=== PATIENT | female | born 2000 | race Caucasian/White ===

== ENCOUNTER 2020-08-30 16:22 | Emergency (ER) | payer BC, SELFPAY ==
[2020-08-30 16:31] VITALS: BP 113/80; PULSE 114; RESP 20; TEMP 37.1; O2SAT 97
--- NOTE | 2020-08-30 17:02 | ED.FEMALEGU ---
HPI - Female Genitourinary General Chief complaint: Urogenital-Female Stated complaint: POS UTI Time Seen by Provider: 08/30/20 16:53 Source: patient and RN notes reviewed Mode of arrival: ambulatory Limitations: no limitations History of Present Illness HPI Narrative: Patient presents today complaining of a 2-day history of dysuria and urinary frequency. Reports some lower abdominal pain last night but this has since resolved. Denies hematuria, back pain, fever. States she has never had a UTI in the past. Denies recent antibiotic use. Took a dose of Azo last night with short-term relief. MD elicited complaint: dysuria Related Data Home Medications Medication Instructions Recorded Confirmed etonogestrel-ethinyl estradiol vag ring VAGINAL 08/30/20 [NuvaRing] valacyclovir 08/30/20 Allergies Allergy/AdvReac Type Severity Reaction Status Date / Time No Known Allergies Allergy Verified 12/30/17 10:08 Review of Systems Review of Systems: Narrative: CONSTITUTIONAL: Denies body aches, fever, chills, or sweats. EYES: Denies visual changes, redness, or discharge. ENT: Denies rhinorrhea, congestion, sore throat, or otalgia. CARDIOVASCULAR: Denies chest pain, palpitations, or edema. RESPIRATORY: Denies cough or dyspnea. GASTROINTESTINAL: Denies abdominal pain, nausea, vomiting, or diarrhea. GENITOURINARY: Denies hematuria. + Dysuria, frequency SKIN: Denies rash, itching, or wounds. MUSCULOSKELETAL: Denies back pain, joint pain, or myalgia. NEUROLOGIC: Denies headache, numbness, tingling, or weakness. PSYCH: Denies depression or anxiety. PMFSH Comments At time of signature, I have reviewed and agree with nursing past medical, surgical, social and family history unless otherwise noted. Please see nursing chart for further information. There is no relevant family history pertinent to the presenting complaint Exam Narrative: Exam Narrative: GENERAL: Well-appearing, well-nourished, and in no acute distress. HEAD: Normocephalic, atraumatic. EYES: EOMI. No redness or drainage. Conjunctivae normal. ENT: Mucous membranes pink and moist. NECK: Normal AROM. Supple. No lymphadenopathy. CHEST: No respiratory distress. Clear to auscultation. HEART: Regular rate and rhythm. No murmur appreciated. Normal peripheral pulses. ABDOMEN: Soft, nondistended, normal active bowel sounds. + Tenderness in the suprapubic area.-CVAT MUSCULOSKELETAL: No bony tenderness. EXTREMITIES: Normal range of motion. No edema. SKIN: Warm, dry, no rash. Capillary refill normal. Normal skin turgor. NEURO: No focal deficits. Alert and oriented x3. Gait steady. PSYCH: Normal affect. No signs of depression or anxiety. Course Vital Signs Vital signs: Vital Signs Temperature 98.7 F 08/30/20 16:31 Pulse Rate 114 H 08/30/20 16:31 Respiratory Rate 20 08/30/20 16:31 Blood Pressure 113/80 08/30/20 16:31 Pulse Oximetry 97 08/30/20 16:31 Temperature 98.7 F 08/30/20 16:31 Pulse Rate 114 H 08/30/20 16:31 Respiratory Rate 20 08/30/20 16:31 Blood Pressure 113/80 08/30/20 16:31 Pulse Oximetry 97 08/30/20 16:31 Reviewed MDM - Female Genitourinary Differential Diagnosis Differential diagnosis: Likely urinary tract infection, vaginitis, cystitis and other (Interstitial cystitis, pyelonephritis) Lab Data Attestation: I reviewed the patient's lab results. Labs: Urine Glucose Trace Reference Range: Negative Urine Bilirubin Negative Reference Range: Negative Urine Ketone Negative Reference Range: Negative Urine Specific [place] 1.005 Reference Range:1.001-1.035 Urine Blood 1+
== END 2020-08-30 17:10 | disposition home or self-care (01) ==
PROVIDERS: Emergency Provider Nurse Practitioner; PCP Pediatrics
DX: N30.01 Acute cystitis with hematuria (principal)
CPT/HCPCS: 81003; 87077; 87086; 87088; 99213; G0463

== ENCOUNTER 2020-12-05 13:47 | Emergency (ER) | payer BC, SELFPAY ==
[2020-12-05 14:07] VITALS: BP 111/72; PULSE 110; RESP 16; TEMP 37.2; O2SAT 100
--- NOTE | 2020-12-05 14:29 | ED.FEMALEGU ---
HPI - Female Genitourinary General Chief complaint: Urogenital-Female Stated complaint: UTI SYMPTOMS Time Seen by Provider: 12/05/20 14:29 Source: patient and RN notes reviewed Mode of arrival: ambulatory Limitations: no limitations History of Present Illness HPI Narrative: 20-year-old female presents to the [facility] with complaints of urinary symptoms. States she has had burning, urgency, frequency and lower abdominal pressure since last night. Denies nausea vomiting or diarrhea. Denies fevers. Unsure of status. Last menstrual period was around 10 November. Denies any chances of STDs. Related Data Allergies Allergy/AdvReac Type Severity Reaction Status Date / Time No Known Allergies Allergy Verified 12/05/20 14:22 Review of Systems Review of Systems: All systems reviewed & are unremarkable except as noted in HPI and below Constitutional: Constitutional: Reports no additional constitutional complaints, Denies chills and Denies fatigue Eyes: Eyes: Reports no additional eye complaints ENT: Reports system reviewed and no additional complaints, except as documented and Denies sore throat Cardiovascular: Cardiovascular: Reports no additional cardiovascular complaints and Denies chest pain Respiratory: Respiratory: Reports no additional respiratory complaints, Denies cough, Denies dyspnea and Denies wheezing Gastrointestinal: Gastrointestinal: Reports as per HPI, Reports no additional gastrointestinal complaints, Denies abdominal pain, Denies diarrhea, Denies nausea and Denies vomiting Genitourinary: Genitourinary: Reports as per HPI, Reports nocturia, Denies genital lesions, Reports dysuria, Denies pelvic pain, Denies flank pain, Denies urinary incontinence and Denies vaginal discharge Musculoskeletal: Musculoskeletal: Reports no additional musculoskeletal complaints, Denies back pain, Denies myalgias, Denies arthralgias, Denies joint swelling and Denies muscle cramps Integumentary/Breasts: Skin/Breast: Reports system reviewed and no additional complaints, except as docu and Denies rash Neurologic: Reports system reviewed and no additional complaints, except as documented, Denies vertigo, Denies dizziness, Denies syncope, Denies headache(s), Denies focal weakness and Denies weakness Psychiatric: Psychiatric: Reports no additional psychiatric complaints Endocrine: Endocrine: Reports no additional endocrine complaints Allergic/Immunologic: Allergic/Immunologic: Reports no additional allergic/immunologic complaints PMFSH Comments At the time of my signature, I reviewed and agree with the nursing past medical, surgical, social, and family history. There is no relevant family history pertinent to the patient complaint. Exam Const: General: healthy appearing, no acute distress and alert Nutritional Appearance: well nourished Orientation/consciousness: patient oriented x3 Limitations: no limitations HENMT: Head: normal to inspection Ears: external ears normal Eyes: General: appearance normal, both eyes and all related structures Conjunctivae: conjunctivae normal Pupils: Equal, round and reactive pupils present Neck: Neck: normal visual inspection, no lymphadenopathy and no meningeal signs Chest: Chest palpation & inspection: normal inspection of the chest Resp: Effort & Inspection: normal respiratory effort and no use of accessory muscles Auscultation: clear to auscultation bilaterally, no crackles, no rales, no rhonchi and no wheezes Cardio: Rate: regular rate Rhythm: regular rhythm GI: GI Palp: Yes Soft to palpation and No Tenderness to palpation present (GI) : General: Yes no CVA tenderness Back/Spine/Pelvis: Back: no CVA tenderness Skin: General skin exam: normal color Rashes: no rashes Wounds: no wounds Neuro: General: patient oriented x3, moves all extremities, no meningeal signs and no focal motor deficits Speech: normal speech Gait exam (Neuro): Normal gait present Extrem: General: normal t
== END 2020-12-05 14:58 | disposition home or self-care (01) ==
PROVIDERS: Emergency Provider Nurse Practitioner; PCP Pediatrics
DX: N30.01 Acute cystitis with hematuria (principal)
CPT/HCPCS: 81003; 81025; 87086; 87088; 99213; G0463

== ENCOUNTER 2021-11-08 14:19 | Outpatient (CLI) | payer BC, SELFPAY ==
--- NOTE | ~2021-11-08 | MR_ITS ---
EXAMINATION: MR brain/brain stem wo/w con DATE: 11/08/2021 15:03 INDICATION: Hyperprolactinemia. TECHNIQUE: Magnetic resonance imaging (MRI) of the brain and brainstem was performed without and with 13 mL MultiHance intravenous contrast. COMPARISON: Head CT 07/20/2013 FINDINGS: The pituitary is normal in size with height of 9 mm. The infundibulum is at the midline. Th ere is no intracranial hemorrhage, acute infarction, or abnormal intracranial mass lesion. The ventri cles are normal in size. The paranasal sinuses are clear. The orbits are normal. The mastoid air cell s are normal. IMPRESSION: 1. Normal brain. Normal pituitary. Reviewed, dictated and finalized at location B.
[2021-11-08 14:35] LABS: Estimated Glomerular Filt Rate > 60
== END 2021-11-08 14:20 ==
PROVIDERS: PCP Physician Assistant; Visit Provider Physician Assistant
DX: R79.89 Other specified abnormal findings of blood chemistry (principal)
CPT/HCPCS: 70553; A9577

== ENCOUNTER 2022-08-22 11:41 | Outpatient (CLI) | payer BC, SELFPAY ==
--- NOTE | ~2022-08-22 | US_ITS ---
EXAMINATION: US OB <= 14 weeks fetus DATE: 08/22/2022 12:11 INDICATION: Gestational dating TECHNIQUE: Real-time transabdominal and transvaginal obstetric ultrasound. FINDINGS: No prior studies for comparison. The uterus measures 12.4 x 5.8 x 7.4 cm. There is an intrauterine gestational sac, with pole id entified. The crown rump length measures 1.4 cm, which correlates with a estimated gestational age o f 7 weeks 5 days. heart tones are identified measuring 157 BPM. The ovaries are not visualize d. IMPRESSION: 1. SL IUP with an EGA of 7 weeks, 5 days (EDC by current ultrasound of 04/05/2023). Reviewed, dictated and finalized at location B. [employer]ICER IMPRESSION: 1. SL IUP with an EGA of 7 weeks, 5 days (EDC by current ultrasound of 04/05/20 23).
== END 2022-08-22 11:42 ==
PROVIDERS: PCP Advanced Practice Midwife; Visit Provider Advanced Practice Midwife
DX: O36.80X0 Pregnancy with inconclusive fetal viability, not applicable or unspecified (principal); Z3A.01 Less than 8 weeks gestation of pregnancy
CPT/HCPCS: 76801

== ENCOUNTER 2022-11-11 12:50 | Outpatient (CLI) | payer BC, SELFPAY ==
--- NOTE | ~2022-11-11 | US_ITS ---
EXAMINATION: US OB /maternal detail DATE: 11/11/2022 13:18 INDICATION: anatomic survey. TECHNIQUE: Real-time ultrasound of the pelvis was performed. COMPARISON: Ultrasound 08/22/2022 FINDINGS: There is a single living fetus in vertex presentation. The placenta is anterior, 3.9 cm from the cer vix. The cervical length is 2.9 cm on transabdominal images, which is normal. heart rate is 151 beats per minute (bpm). The amniotic fluid volume is subjectively normal. The following biometric data were obtained: Biparietal diameter (BPD): 4.4 cm; head circumference (HC): 16.8 cm; abdominal circumference (AC): 14 .7 cm; femur length (FL): 3.0 cm. These measurements are concordant. Estimated weight is 305 g +/- 46 g, which correlates with the 68th percentile when 04/05/23 is used as estimated date of delivery. As single measurements, these parameters are each equal to the following estimated gestational ages: BPD: 19 weeks 3 days. HC: 19 weeks 3 days. AC: 20 weeks 0 days. FL: 19 weeks 2 days. estimated gestational age based solely on measurements from this exam is 19 weeks 4 days +/- 1 weeks 3 days. The cerebral ventricles, cerebellum, cisterna magna, nuchal fold, lip, and visualized portions of the spine are normal. The heart is normal. The diaphragm, stomach, kidneys, and bladder are normal. Ther e are two umbilical arteries to yield a 3-vessel cord. The cord insertion is normal. IMPRESSION: 1. Single living fetus in vertex presentation. 2. Estimated weight is 305 g +/- 46 g, which correlates with the 68th percentile when 04/05/23 is used as estimated date of delivery. This date was set by ultrasound on 08/22/2022. 3. Normal anatomic survey. Reviewed, dictated and finalized at location A. IMPRESSION: 1. Single living fetus in vertex presentation. 2. Estimated weight is 305 g +/- 46 g, which correlates with the 68th pe rcentile when 04/05/23 is used as estimated date of delivery. This date was set by ultrasound on 08/22/2022. 3. Normal anatomic survey.
== END 2022-11-11 12:51 ==
PROVIDERS: PCP Physician Assistant; Visit Provider Advanced Practice Midwife
DX: Z36.9 Encounter for antenatal screening, unspecified (principal); Z3A.19 19 weeks gestation of pregnancy
CPT/HCPCS: 76805

== ENCOUNTER 2022-12-27 10:01 | Outpatient (CLI) | payer BC, SELFPAY ==
[2022-12-27 10:20] VITALS: BP 123/74; PULSE 100
[2022-12-27 10:30] VITALS: BP 109/63; PULSE 92; BMI 36.6
[2022-12-27 10:45] VITALS: BP 114/71; PULSE 113
[2022-12-27] MEDS: LACTATED RINGERS 1,000 ML 999 ML IV CONT (11:04)
[2022-12-27 11:05] LABS: Basophils Percent Auto 0.3 % (0.2-1.2); Eosinophils Percent Auto 0.4 % (0-4.4); Hematocrit 34.1 % (37.0-47.0); Hemoglobin 11.3 g/dL (12.0-15.0); Immature Granulocyte Absolute 0.06 K/mm3 (0.00-0.031); Immature Granulocyte Percent A 0.5 % (0-0.5); Lymphocytes Absolute Auto 1.64 K/mm3 (0.9-3.2); Lymphocytes Percent Auto 14.5 % (18.3-44.2); Mean Corpuscular HGB Conc 33.1 g/dl (32-36); Mean Corpuscular Hemoglobin 31.3 pg (26-34); Mean Corpuscular Volume 94.5 fl (80-100); Mean Platelet Volume 9.2 fl (7.4-10.4); Monocytes Absolute Auto 0.5 K/mm3 (0.1-0.6); Monocytes Percent Auto 4.6 % (2.6-8.5); Neutrophils Percent Auto 79.7 % (45.5-73.1); Platelet Count Result 235 k/mm3 (150-375); Red Blood Count 3.61 M/mm3 (4.2-5.4); Red Cell Distribution Width 12.9 % (11.5-14.5); White Blood Count 11.3 K/mm3 (4.5-10.0)
[2022-12-27] MEDS: ONDANSETRON INJ 4 MG/2 ML VIAL IV PUSH (11:05)
[2022-12-27] MEDS: ACETAMINOPHEN/BUTALBITAL/CAFFEINE 325-50-40 MG TABLET (FIORICET) 1 TAB PO (11:51)
[2022-12-27 12:25] LABS: Alanine Aminotransferase 21 U/L (6-35); Albumin Level 3.7 g/dL (3.5-5.1); Alkaline Phosphatase 86 U/L (38-126); Anion Gap 5 mmol/L (8-16); Aspartate Amino Transferase 20 U/L (14-36); Bilirubin,Total 0.3 mg/dL (0.2-1.3); Blood Urea Nitrogen 8 mg/dL (7-17); Calcium 8.9 mg/dL (8.4-10.2); Carbon Dioxide 24 mmol/L (22-30); Chloride 105 mmol/L (98-107); Estimated Glomerular Filt Rate > 60; Glucose 85 mg/dL (65-110); Sodium 134 mmol/L (137-145); Uric Acid 2.9 mg/dL (2.5-7.5)
--- NOTE | 2022-12-27 12:30 | PC.NURSE ---
Dr. Taveras on unit. Lab results reviewed. Pt states that she is feeling better and would like to go home. Tolerating PO fluids. May D/C home.
--- NOTE | 2022-12-27 12:30 | PM.OBTRLD ---
OB - Triage/Final Diagnosis Visit Information Date of evaluation: 12/27/22 Reason for evaluation: other (migraine) Comments/Additional reasons for admission: I have assessed the risk for this patient, Vy Montgomery, and determined that she would benefit from observation care. Evaluation Laboratory results: Laboratory Tests 12/27/22 12/27/22 10:43 10:44 WBC 11.3 H RBC 3.61 L Hgb 11.3 L Hct 34.1 L MCV 94.5 MCH 31.3 MCHC 33.1 RDW 12.9 Plt Count 235 MPV 9.2 Immature Gran % (Auto) 0.5 Neut % (Auto) 79.7 H Lymph % (Auto) 14.5 L [place] % (Auto) 4.6 Eos % (Auto) 0.4 Baso % (Auto) 0.3 Lymph # (Auto) 1.64 [place] # (Auto) 0.5 Eos # (Auto) 0.0 Baso # (Auto) 0.0 Abs Immat Gran (auto) 0.06 H Absolute Neuts (auto) 9.0 H Absolute Nucleated RBC 0.0 Nucleated RBC % 0.0 Sodium 134 L Potassium 4.0 Chloride 105 Carbon Dioxide 24 Anion Gap 5 L BUN 8 Creatinine 0.50 L Estim Creat Clear Calc Not Reportable Estimated GFR > 60 Glucose 85 Uric Acid 2.9 Calcium 8.9 Total Bilirubin 0.3 AST 20 ALT 21 Alkaline Phosphatase 86 Total Protein 6.0 L Albumin 3.7 Vital signs: Vital Signs - 24 hr 12/27/22 10:20 12/27/22 10:30 12/27/22 10:45 Pulse Rate 100 92 113 H Blood Pressure 123/74 109/63 114/71
== END 2022-12-27 12:45 | disposition home or self-care (01) ==
LOC: ANHOBOP 10:06 → ANHOBPP 10:08
PROVIDERS: Student in an Organized Health Care Education/Training Program; PCP Physician Assistant; Visit Provider Obstetrics & Gynecology Gynecology
DX: R51.9 Headache, unspecified (principal); R42 Dizziness and giddiness
CPT/HCPCS: 36415; 59025; 80053; 84550; 85025; 96374; 99199; A9270; J2405; J7120

== ENCOUNTER 2023-02-17 12:57 | Outpatient (CLI) | payer BC, SELFPAY ==
--- NOTE | ~2023-02-17 | US_ITS ---
EXAMINATION: US OB follow up DATE: 02/17/2023 13:19 INDICATION: Size greater than dates during third trimester TECHNIQUE: Real-time ultrasound of the pelvis was performed. The interpreting radiologist was not pre sent for the study. COMPARISON: None. FINDINGS: There is a single living fetus in vertex presentation. The placenta is anterior and 10.7 cm from the internal cervical os. The measured cervical length is 4.4 cm. cardiac activity and fe beronica movement are noted. heart rate is 137 beats per minute (bpm). The amniotic fluid index is 1 5.6 cm which is normal (normal range: 8.3 cm to 24.5 cm). The following biometric data were obtained: Biparietal diameter (BPD): 8.3 cm; head circumference (HC): 29.6 cm; abdominal circumference (AC): 30 .1 cm; femur length (FL): 6.6 cm. These measurements are concordant. Estimated weight is 2295 g +/- 344 g, which correlates with the 60th percentile when 04/05/2023 is used as estimated date of delivery. As single measurements, these parameters are each equal to the following estimated gestational ages w ith ranges of +/- 2 standard deviations: BPD: 33 weeks 2 days ( 30 weeks 2 days - 36 weeks 3 days). HC: 32 weeks 5 days ( 29 weeks 5 days - 35 weeks 5 days). AC: 34 weeks 1 days ( 31 weeks 1 days - 37 weeks 0 days). FL: 34 weeks 1 days ( 31 weeks 1 days - 37 weeks 0 days). estimated gestational age based solely on measurements from this exam is 33 weeks 4 days +/- 2 weeks 2 days. IMPRESSION: 1. Single living fetus in vertex presentation. 2. Normal amniotic fluid index. 3. Estimated weight is 2295 g +/- 344 g, which correlates with the 60th percentile when 023 is used as estimated date of delivery. Reviewed, dictated and finalized at location A. IMPRESSION: 1. Single living fetus in vertex presentation. 2. Normal amniotic fluid index. 3. Estimated weight is 2295 g +/- 344 g, which correlates with the 60th p ercentile when 04/05/2023 is used as estimated date of delivery.
== END 2023-02-17 12:58 ==
PROVIDERS: PCP Advanced Practice Midwife; Visit Provider Advanced Practice Midwife
DX: O36.63X0 Maternal care for excessive fetal growth, third trimester, not applicable or unspecified (principal); Z3A.00 Weeks of gestation of pregnancy not specified
CPT/HCPCS: 76816

== ENCOUNTER 2023-04-05 06:14 | Inpatient (IN) | payer BC, SELFPAY ==
[2023-04-05] VITALS (54 sets, daily range): BP systolic 75–167; BP diastolic 30–118; PULSE 90–145; RESP 18; TEMP 36.5–37.7; O2SAT 98; BMI 40.3
--- NOTE | 2023-04-05 06:14 | LDADM ---
This patient, Vy Viera, was admitted to Labor/Delivery/Recovery 102 on 04/05/23 at 06:14. Plans for labor, pain management and were discussed with patient. Patient/family oriented to hospital policies and general routines including ID bracelet, bed and alarms, visiting hours, pain management, procedures, bathroom and other care routines, personal items, smoking policy, room service/diet and guest tray routines, security routines, and visiting hours. Patient/Family are encouraged to report perceived risks to care and to ask questions if they do not understand what they are told or what they should do. See OBIX for further documentation.
[2023-04-05 07:23] LABS: Basophils Percent Auto 0.3 % (0.2-1.2); Eosinophils Absolute Auto 0.1 K/mm3 (0-0.3); Eosinophils Percent Auto 0.6 % (0-4.4); Hemoglobin 10.5 g/dL (12.0-15.0); Immature Granulocyte Absolute 0.04 K/mm3 (0.00-0.031); Immature Granulocyte Percent A 0.5 % (0-0.5); Lymphocytes Absolute Auto 1.27 K/mm3 (0.9-3.2); Lymphocytes Percent Auto 14.3 % (18.3-44.2); Mean Corpuscular HGB Conc 31.8 g/dl (32-36); Mean Corpuscular Hemoglobin 28.8 pg (26-34); Mean Corpuscular Volume 90.7 fl (80-100); Mean Platelet Volume 10.2 fl (7.4-10.4); Monocytes Absolute Auto 0.5 K/mm3 (0.1-0.6); Monocytes Percent Auto 5.3 % (2.6-8.5); Platelet Count Result 210 k/mm3 (150-375); Red Blood Count 3.64 M/mm3 (4.2-5.4); Red Cell Distribution Width 13.8 % (11.5-14.5); White Blood Count 8.9 K/mm3 (4.5-10.0)
[2023-04-05] MEDS: OXYTOCIN 30 UNITS/NS 500 ML 30 UNITS/500 ML BAG IV CONT (07:35)
[2023-04-05] MEDS: LACTATED RINGERS 1,000 ML 125 ML IV CONT (07:35)
--- NOTE | 2023-04-05 08:14 | WPDOBADMIT ---
Obstetrics - Admit Note Admission Note: record reviewed. No pertinent additions to the history and/or any subsequent changes in the physical findings that are not consistent with the expected course of the were found. Additions to the history and/or subsequent changes in the physical findings follow. None.
--- NOTE | 2023-04-05 08:14 | PM.OBPNLAB ---
Pain Control Date/time seen: 04/05/23 08:10 Pain control: tolerating well Comments: denies feeling any regular uterine contractions Pelvic Exam Dilation (cm): 4 (4.5) Effacement (%): 80 station: -3 Amniotic membrane status: Intact Comments: head well applied to cervix Contractions Monitor mode: External Contraction frequency: 6 Contraction pattern: Irregular Contraction intensity: Mild Status status: Category l Assessment and Plan Assessment: induction ongoing Comments: CNM to bedside. Discussed plan of care an option for amniotomy. Discussed risks, benefits, and expectations of breaking water. Patient is agreeable. Amniotomy performed and there was a small return of clear amniotic fluid. Patient tolerated procedure well. Continue to titrate pitocin as needed to achieve adequate contraction pattern. If no change with next SVE, would recommend IUPC. Anticipate vaginal . Dr. Mays updated.
[2023-04-05 10:43] LABS: Rapid Plasma Reagin Non-Reactive (NonReactive)
--- NOTE | 2023-04-05 12:12 | P.PNOB_ITS ---
Pain Control Date/time seen: 04/05/23 12:08 Pain control: tolerating well Comments: Feeling regular painful ctx in her lower abdomen. Family present and supportive. Pelvic Exam Dilation (cm): 6 (4.5) Effacement (%): 90 station: -1 Amniotic membrane status: Ruptured Contractions Monitor mode: External Contraction pattern: Regular Contraction intensity: Moderate Status status: Category l Comments: Baseline 125, accelerations. present. Assessment and Plan Pitocin rate (mU/min): 3 Plan: continuous present management Comments: Called by RN for IUPC placement due to difficulty tracing contractions and wa nting to ensure adequate uterine rest. Discussed IUPC placement with pt. She was aggreable. IUPC placed easily and returned with clear amniotic fluid. If MVUs well over 220 mmHg, plan to discontinue pitocin. If ctx become inadequate after that time, will restart pitocin. Recommend frequent maternal position changes to facilitate optimal positioning. Anticipate vaginal . Dr. Tabatha khanna.
[2023-04-05] MEDS: fentaNYL CITRATE INJ (*CRX) 100 MCG/2 ML VIAL 50 MCG IV PUSH ×2 (12:24→17:19)
[2023-04-05] MEDS: fentaNYL CITRATE INJ (*CRX) 100 MCG/2 ML VIAL IV PUSH (13:31)
--- NOTE | 2023-04-05 15:25 | PM.OBPRVD ---
OB - Delivery Note Procedure Induction method: AROM and Per Pitocin Protocol Delivery augmentation: Rupture of Membranes Delivery monitor: External FHT and Internal Uterine [place] Baby Date of : 04/05/23 presentation: vertex
--- NOTE | 2023-04-05 15:25 | PM.OBDSVD ---
DS: Admitting Diagnosis Discharge Date 04/07/[address] Mays Admitting Diagnosis 22 y.o. 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 - Herpesviral infection, unspecified Status: Acute OB - DS: Summary Hospital Course Hospital Course: Uncomplicated OB Procedures : Ultrasound OB Procedures Intrapartum: Spontaneous Vag Delivery OB Procedures: : Rubella lg Peripartum Data Infant Delivery Method: Natural Vaginal Laceration Description: Vaginal - 2nd Degree and Labial Episiotomy description: None complications: none Status at Discharge Functional status at discharge: independent ambulation Overall status at discharge: patient is progressing back to baseline Time Spent with Patient Time attestation: Total time spent providing and/or coordinating discharge services: DS: Data Data Completed and Pending Labs on day of discharge: Labs from last 24 hours 04/05/23 07:09 WBC 8.9 RBC 3.64 L Hgb 10.5 L Hct 33.0 L MCV 90.7 MCH 28.8 MCHC 31.8 L RDW 13.8 Plt Count 210 MPV 10.2 Immature Gran % (Auto) 0.5 Neut % (Auto) 79.0 H Lymph % (Auto) 14.3 L [place] % (Auto) 5.3 Eos % (Auto) 0.6 Baso % (Auto) 0.3 Lymph # (Auto) 1.27 [place] # (Auto) 0.5 Eos # (Auto) 0.1 Baso # (Auto) 0.0 Abs Immat Gran (auto) 0.04 H Absolute Neuts (auto) 7.0 H Absolute Nucleated RBC 0.0 Nucleated RBC % 0.0 RPR Non-reactive Blood Type O Positive Antibody Screen Negative Discharge Plan Discharge Attending physician on discharge: Emilia Mays Consulting providers: Aparna Al Discharging Clinician: Emilia Mays Patient Disposition: Home, Self-Care Activity: may shower Diet: as tolerated and regular Wound Care Instructions: follow printed instructions Discharge Instructions: Education: Mom and Baby Guide Given to: Mother Follow-Up: Call your delivering provider's office for an appointment to be seen in: 6 Weeks Mom and baby should come to the [facility] for the follow-up appointment. Appointment Date/Time: April 10, 2023 at 11:00 am What to expect at your follow-up visit: Blood Pressure Check Physical Assessment Call [phone] if you are unable to keep your appointment time. BREAST CARE: * Wear a snug supportive bra. * For engorgement discomfort: Breast Feeding: * Apply warm moist washcloths * Express milk as needed to relieve engorgement * Wear loose clothing Bottle Feeding: * May apply ice packs * For sore nipples: * Identify correct latch-on * Apply warm moist washcloths before and after nursing * Air dry nipples after nursing * May apply Lansinoh cream to nipples EPISIOTOMY/PERINEAL CARE: * Until bleeding stops, use your rah bottle after urinating * Change your pad frequently throughout the day * You may take sitz baths several times a day (fill your bathtub with warm water and soak for 20 minutes.) Do NOT bathe in the water * No tub baths until seen by your physician - You may shower ACTIVITY: * Rest as much as possible. * Do not exercise or lift anything heavier than your baby (such as laundry or other children.) * Avoid stairs or driving as much as possible. * Do not put anything into the vagina. No douching, tampons, or sexual activity until seen by physician. NOTIFY PHYSICIAN
[2023-04-05] MEDS: METHYLERGONOVINE MALEATE 0.2 MG/ML VIAL IM (16:28)
[2023-04-05] MEDS: OXYTOCIN 30 UNITS/NS 500 ML 30 UNITS/500 ML BAG 125 UNITS IV CONT (16:48)
--- NOTE | 2023-04-05 17:13 | PC.NURSE ---
Aparna YOST ordered 50mcg of Fentanyl for repair
--- NOTE | 2023-04-05 17:59 | PM.OBPRVD ---
OB - Delivery Note Procedure Delivery date: 04/05/23 Procedure: Induction method: AROM and Per Pitocin Protocol Delivery augmentation: Rupture of Membranes Delivery monitor: External FHT and Internal Uterine Route of delivery: Episiotomy description: None Laceration Description: Vaginal, Labial and Other (4 seperate lacerations. 1- 2nd degree right vaginal to r labial, 2- 1st degree vaginal at 6 o'clock, 3- 2nd degree left vaginal, 4- 1st degree left labial) Delivery repair: vicryl Specimen: No Quantitative Blood Loss (ml): 800 Anesthesia type: Local Disposition: Floor Narrative: Patient presented at induction of labor at term. Pitocin was started and amniotomy was performed. She made steady progress to complete dilation and began pushing with contractions. She pushed for a short time and quickly brought the head to complete crown. She delivered the head in the [place] position after which fair restitution was observed. No nuchal cord was identified. The anterior and posterior shoulders delivered easily, followed by the remainder of the . The infant was placed on maternal abdomen and cared transferred to the nursery staff. After 1 minute of life, the cord was doubly clamped and cut. Cord blood, cord gases, and cord segment were obtained. The placenta delivered spontaneously. The vagina and perineum were inspected and while the Perineum was found to be intact, there were 4 separate vaginal lacerations. Attention was given to the 2nd degree right vaginal and labial laceration as bleeding was brisk. Two [id number] sutures were placed. Remainder of the laceration was repaired in usual fashion. The 3 remaining lacerations were repaired under local analgesia. a red rubber catheter was inserted in a sterile fashion and 400 mL of urine was drained. Uterine tone was excellent. Two small clots were removed from the lower uterine segment/ cervical area. There was excellent hemostasis and all delivery counts correct. [place] Baby Date of : 04/05/23 Time of : 16:10 Weeks of gestation at delivery: 40 Infant gender: Female Weight (pounds): 8 Weight (ounces): 12 presentation: vertex position: Left Occiput Anterior Placenta delivery description: Spontaneous and Normal Configuration Cord Vessel Description: 3 Vessels, Clamped/Cut and Delayed Cord Clamping score one minute: 8 score five minutes: 9
[2023-04-05] MEDS: LACTATED RINGERS 1,000 ML 999 ML IV CONT (19:00)
[2023-04-06] VITALS (14 sets, daily range): BP systolic 110–128; BP diastolic 58–80; PULSE 97–118; RESP 16–18; TEMP 36.2–36.9; O2SAT 97–100
[2023-04-06 05:01] LABS: Hemoglobin 7.5 g/dL (12.0-15.0)
--- NOTE | 2023-04-06 07:23 | P.PNOB_ITS ---
OB - PN: Subj Subjective Date/time seen: 04/06/23 07:23 Interval history: Dizzy any time stands. No other complaints. baby status: doing well OB - PN: Obj Data Labs 04/06/23 04:41 Labs: Laboratory Results - last 24 hr 04/05/23 04/06/23 07:09 04:41 WBC 8.9 RBC 3.64 L Hgb 10.5 L 7.5 L D Hct 33.0 L 24.0 L MCV 90.7 MCH 28.8 MCHC 31.8 L RDW 13.8 Plt Count 210 MPV 10.2 Immature Gran % (Auto) 0.5 Neut % (Auto) 79.0 H Lymph % (Auto) 14.3 L [place] % (Auto) 5.3 Eos % (Auto) 0.6 Baso % (Auto) 0.3 Lymph # (Auto) 1.27 [place] # (Auto) 0.5 Eos # (Auto) 0.1 Baso # (Auto) 0.0 Abs Immat Gran (auto) 0.04 H Absolute Neuts (auto) 7.0 H Absolute Nucleated RBC 0.0 Nucleated RBC % 0.0 RPR Non-reactive Blood Type O Positive Antibody Screen Negative OB - PN A/P Assessment and Plan (1) Anemia: Code(s): D64.9 - Anemia, unspecified Status: Acute Assessment and Plan: Predelivery 10.5 and now 7.5 Hemoglobin. Patient with elevated pulse since delivery up to 132. Symptomatic when standing. Offered and explained blood transfusion and patient agrees. Will give 2 units PRBC. Plan day: 1 Plan: routine care Time Spent With Patient Time: Total time spent is greater than 50% in coordination of care (as documented) at patient's floor/unit and/or counseling patient: Exam : Bimanual exam- vagina & uterus: other (Uterus firm, nt @U)
[2023-04-06] MEDS: POLYSACCHARIDE IRON COMPLEX 150 MG CAPSULE PO ×2 (08:42→17:06)
[2023-04-06] MEDS: DOCUSATE SODIUM 100 MG CAPSULE PO ×2 (08:43→17:06)
[2023-04-06] MEDS: SODIUM CHLORIDE 0.9% IV 250 ML 30 ML IV CONT (09:30)
[2023-04-07 05:25] LABS: Hematocrit 26.5 % (37.0-47.0); Hemoglobin 8.4 g/dL (12.0-15.0); Mean Corpuscular HGB Conc 31.7 g/dl (32-36); Mean Corpuscular Volume 91.4 fl (80-100); Mean Platelet Volume 10.7 fl (7.4-10.4); Platelet Count Result 196 k/mm3 (150-375); Red Cell Distribution Width 14.8 % (11.5-14.5)
[2023-04-07 07:35] VITALS: BP 116/72; PULSE 103; RESP 16; TEMP 36.8; O2SAT 99
--- NOTE | 2023-04-07 08:51 | P.PNOB_ITS ---
OB - PN: Subj Subjective Date/time seen: 04/07/23 08:51 Interval history: dizziness resolved. Patient comments: no complaints [place] baby status: doing well OB - PN: Obj Data Labs 04/07/23 04:05 Labs: Laboratory Results - last 24 hr 04/05/23 04/07/23 07:09 04:05 WBC 12.0 H RBC 2.90 L Hgb 8.4 L Hct 26.5 L MCV 91.4 MCH 29.0 MCHC 31.7 L RDW 14.8 H Plt Count 196 MPV 10.7 H Blood Type O Positive Antibody Screen Negative Crossmatch See Detail OB - PN A/P Plan day: 2 Plan: routine care, discharge home, follow up 6 weeks and other (NFP for bc) Time Spent With Patient Time: Total time spent is greater than 50% in coordination of care (as documented) at patient's floor/unit and/or counseling patient: Exam : Bimanual exam- vagina & uterus: other (Uterus firm, nt @U)
[2023-04-07] MEDS: DOCUSATE SODIUM 100 MG CAPSULE PO (09:31)
[2023-04-07] MEDS: POLYSACCHARIDE IRON COMPLEX 150 MG CAPSULE PO (09:31)
[2023-04-07] MEDS: MEASLES,MUMPS,RUBELLA VACCINE 0.5 ML VIAL SUB-Q (09:32)
[2023-04-10 11:13] VITALS: BP 116/77; PULSE 98; RESP 18; TEMP 36.9; O2SAT 100
== END 2023-04-07 11:20 | disposition home or self-care (01) | DRG 807 ==
LOC: ANHLDR 15:27 → ANHOB2 21:28
PROVIDERS: Advanced Practice Midwife; Admitting Provider Obstetrics & Gynecology Gynecology; PCP Physician Assistant; Visit Provider Obstetrics & Gynecology Gynecology
DX: O99.02 Anemia complicating childbirth (principal); Z37.0 Single live birth; Z3A.40 40 weeks gestation of pregnancy; D64.9 Anemia, unspecified; O70.1 Second degree perineal laceration during delivery
CPT/HCPCS: 36415; 36430; 85014; 85018; 85025; 85027; 86592; 86850; 86900; 86901; 86923; 90710; A9270; J2210; J2590; J3010; J7050; J7120; P9016

== ENCOUNTER 2023-07-13 13:29 | Outpatient (CLI) | payer MEDICAID, SELFPAY ==
--- NOTE | ~2023-07-13 | US_ITS ---
EXAMINATION: US OB <= 14 weeks fetus DATE: 07/13/2023 13:58 INDICATION: Spotting. First trimester. TECHNIQUE: Real-time transabdominal pelvic ultrasound was performed. COMPARISON: Ultrasound 02/17/2023 FINDINGS: The uterus measures 10.1 x 4.8 x 6.5 cm. The endometrial complex measures 15 mm in thickness. There i s no visible intrauterine gestational sac. The right ovary measures 4.5 x 2.7 x 4.6 cm. The left ovar y measures 3.5 x 1.9 x 3.3 cm. There is no free fluid in the pelvis. IMPRESSION: 1. No visible intrauterine gestational sac, which may be normal in early . Spontaneous abor tion and ectopic are not excluded. Serial beta-hCGs are recommended. Reviewed, dictated and finalized at location E. GER SUPPLIER IMPRESSION: 1. No visible intrauterine gestational sac, which may be normal in early pregn kaiser. Spontaneous and ectopic are not excluded. Serial beta- hCGs are recommended.
== END 2023-07-13 13:30 ==
PROVIDERS: PCP Obstetrics & Gynecology Gynecology; Visit Provider Obstetrics & Gynecology Gynecology
DX: O26.851 Spotting complicating pregnancy, first trimester (principal); Z3A.00 Weeks of gestation of pregnancy not specified
CPT/HCPCS: 76801

== ENCOUNTER 2023-11-28 15:38 | Outpatient (CLI) | payer OTHER, SELFPAY ==
--- NOTE | ~2023-11-28 | US_ITS ---
EXAMINATION: US OB <= 14 weeks fetus DATE: 11/28/2023 16:22 INDICATION: Uncertain gestational dates TECHNIQUE: Real-time transabdominal and transvaginal obstetric ultrasound. FINDINGS: The uterus measures 14.9 x 6.8 x 8.9 cm. There is an intrauterine gestational sac, with pole id entified. The crown rump length measures 1.62 cm, which correlates with a estimated gestational age of 8 weeks 0 days. heart tones are identified measuring 157 BPM. The ovaries are within jeffery l limits. No significant ovarian or adnexal mass. IMPRESSION: 1. SL IUP with an EGA of 8 weeks, 0 days (EDC by current ultrasound of 07/09/2024). Reviewed, dictated and finalized at location B. IMPRESSION: 1. SL IUP with an EGA of 8 weeks, 0 days (EDC by current ultrasound of ).
== END 2023-11-28 15:39 | disposition home or self-care (01) ==
PROVIDERS: PCP Physician Assistant; Visit Provider Advanced Practice Midwife
DX: Z36.87 Encounter for antenatal screening for uncertain dates (principal)
CPT/HCPCS: 76801

== ENCOUNTER 2024-02-22 13:30 | Outpatient (CLI) | payer OTHER, SELFPAY ==
--- NOTE | ~2024-02-22 | US_ITS ---
EXAMINATION: US OB /maternal detail DATE: 02/22/2024 14:52 INDICATION: Encounter for screening. TECHNIQUE: Real-time ultrasound of the pelvis was performed. COMPARISON: Ultrasound 11/28/2023 FINDINGS: There is a single living fetus in breech presentation. The placenta is posterior. heart rate i s 155 beats per minute (bpm). The cervical length is normal on transabdominal images. The amniotic fl uid index is 11.3 cm, which is normal. The following biometric data were obtained: Biparietal diameter (BPD): 4.7 cm; head circumference (HC): 17.5 cm; abdominal circumference (AC): 16 .6 cm; femur length (FL): 3.3 cm. These measurements are discordant with low HC/AC. Estimated weight is 380 g +/- 57 g, which correlates with the 76th percentile when 07/09/24 is u sed as estimated date of delivery. As single measurements, these parameters are each equal to the following estimated gestational ages: BPD: 20 weeks 1 days. HC: 20 weeks 0 days. AC: 21 weeks 4 days. FL: 20 weeks 1 days. estimated gestational age based solely on measurements from this exam is 20 weeks 3 days +/- 1 weeks 3 days. The cerebral ventricles, cerebellum, cisterna magna, nuchal fold, and spine are normal. The heart is normal. The diaphragm, stomach, kidneys, and bladder are normal. There are two umbilical arteries to yield a 3-vessel cord. The cord insertion is normal. IMPRESSION: 1. Single living fetus in breech presentation. 2. Estimated weight is 380 g +/- 57 g, which correlates with the 76th percentile when 07/09/24 is used as estimated date of delivery. This date was set by ultrasound on 11/28/2023. 3. Discordant biometrics with low HC/AC. 4. Normal anatomic survey. Reviewed, dictated and finalized at location A. IMPRESSION: 1. Single living fetus in breech presentation. 2. Estimated weight is 380 g +/- 57 g, which correlates with the 76th pe rcentile when 07/09/24 is used as estimated date of delivery. This date was set by ultrasound on 11/28/2023. 3. Discordant biometrics with low HC/AC. 4. Normal anatomic survey.
== END 2024-02-22 13:31 | disposition home or self-care (01) ==
PROVIDERS: PCP Physician Assistant; Visit Provider Obstetrics & Gynecology
DX: Z36.9 Encounter for antenatal screening, unspecified (principal)
CPT/HCPCS: 76805

== ENCOUNTER 2024-04-23 10:12 | Outpatient (CLI) | payer OTHER, SELFPAY ==
--- NOTE | ~2024-04-23 | US_ITS ---
EXAMINATION: US OB follow up DATE: 04/23/2024 10:59 INDICATION: Obesity complicating TECHNIQUE: Real-time ultrasound of the pelvis was performed. The interpreting radiologist was not pre sent for the study. COMPARISON: None. FINDINGS: There is a single living fetus in vertex presentation. The placenta is posterior. heart rate i s 151 beats per minute (bpm). The amniotic fluid index is 12.2 cm, which is normal (5th%-95%: 9.2-23 .1 cm at 29 weeks estimated gestational age). Normal cervical length of 4.3 cm. The following biometric data were obtained: BPD: 7.6 cm -> 30 weeks 4 days Head circumference: 27.4 cm -> 29 weeks 6 days Abdominal circumference: 26.3 cm -> 30 weeks 3 days Femur length: 5.5 cm -> 28 weeks 6 days These measurements are concordant. Head circumference to abdominal circumference ratio: 1.04 (normal range 0.97-1.19). Estimated weight: 1472 g (+/-) 221 g or 3 lbs. 4 oz. (+/-) 8 oz. IMPRESSION: 1. Single living fetus in vertex presentation with heart rate of 151 bpm. 2. Normal amniotic fluid index of 12.2 cm. 3. Estimated weight is 70th percentile by Hadlock criteria when 07/09/2024 is used as the estima clemencia date of delivery (OLENA). Please correlate with clinical information or earlier ultrasounds for mos t accurate OLENA. Reviewed, dictated and finalized at location A. IMPRESSION: 1. Single living fetus in vertex presentation with heart rate of 151 bpm. 2. Normal amniotic fluid index of 12.2 cm. 3. Estimated weight is 70th percentile by Hadlock criteria when 07/09/2024 is used as the estimated date of delivery (OLENA). Please correlate with clinica l information or earlier ultrasounds for most accurate OLENA.
== END 2024-04-23 10:13 | disposition home or self-care (01) ==
PROVIDERS: PCP Physician Assistant; Visit Provider Obstetrics & Gynecology
DX: O99.210 Obesity complicating pregnancy, unspecified trimester (principal); Z3A.00 Weeks of gestation of pregnancy not specified
CPT/HCPCS: 76816

== ENCOUNTER 2025-04-15 03:16 | Emergency (ER) | payer OTHER, SELFPAY ==
[2025-04-15 03:23] VITALS: BP 119/81; PULSE 95; RESP 22; TEMP 36.7; O2SAT 98
--- NOTE | 2025-04-15 03:28 | ED.HA ---
HPI - Headache General Chief Complaint: Headache Stated Complaint: headache Time Seen by Provider: 04/15/25 03:21 History of Present Illness HPI Narrative: 24-year-old female presenting to the emergency department today with complaints of a migraine headache for the last 24 hours. Patient states she has a history of migraine headaches and previously was on medications for this. She states every time she gets she gets a migraine like this in her 1st trimester. Denies any recent injuries or illnesses. Notes a visual aura that has since resolved but still having a migraine. Describes as throbbing. Constant. Duration for about 24 hours. No exertional component or traumatic injury or inciting injury. No fever, chills, cough. Was otherwise in her normal state of health. Approximately 9-10 weeks based on last menstrual cycle. Has not been able to establish with her OBGYN for this . Denies any other complaints at this time and is overall well-appearing ambulatory with no neurological deficits. Related Data Allergies Allergy/AdvReac Type Severity Reaction Status Date / Time No Known Allergies Allergy Verified 04/15/25 04:00 Review of Systems Review of Systems: As reviewed above in [facility] Social History Social History Smoking status: Never smoker Substance use: never Lack of Transportation: No Lack of Food: Never True Current Housing: I Have Housing Concerned About Future Housing: No Difficulty Paying Gas/Electric Bills: No Difficulty Paying for Meds: No Currently Unemployed: No Education: Associate Degree Difficulty w/ Childcare or Family Care: No Spiritual care concerns: No Exam Narrative: GENERAL: [Well-appearing, well-nourished, and in no acute distress.] HEAD: [Normocephalic, atraumatic.] EYES: [PERRLA and EOMI.] ENT: Nares clear, no rhinorrhea or epistaxis. Mucous membranes moist. NECK: Supple. CHEST: [Clear to auscultation. No respiratory distress.] HEART: [Regular rate and rhythm]. No murmur heard. [Normal peripheral pulses.] ABDOMEN: [Soft, nondistended], [nontender], [No rigidity or guarding] EXTREMITIES: Normal range of motion. [No edema.] SKIN: Warm, dry, no rash. NEURO: [No focal deficits]. Alert and oriented [x3.] PSYCH: [Normal mood and affect.] Course Vital Signs Vital signs: Vital Signs Temperature 36.7 C 04/15/25 03:23 Pulse Rate 95 04/15/25 03:23 Respiratory Rate 22 H 04/15/25 03:23 Blood Pressure 119/81 04/15/25 03:23 Pulse Oximetry 98 04/15/25 03:23 Oxygen Delivery Room Air 04/15/25 03:23 Temperature 36.7 C 04/15/25 03:29 Pulse Rate 96 04/15/25 05:19 Respiratory Rate 17 04/15/25 05:19 Blood Pressure 107/61 04/15/25 05:19 Pulse Oximetry 97 04/15/25 05:19 Oxygen Delivery Room Air 04/15/25 03:23 MDM - Headache MDM Narrative Medical decision making narrative: 24-year-old female presenting to the emergency department today with complaints of a migraine headache for the last 24 hours. Patient states she has a history of migraine headaches and previously was on medications for this. She states every time she gets she gets a migraine like this in her 1st trimester. Denies any recent injuries or illnesses. Notes a visual aura that has since resolved but still having a migraine. Describes as throbbing. Constant. Duration for about 24 hours. No exertional component or traumatic injury or inciting injury. No fever, chills, cough. Was otherwise in her normal state of health. Approximately 9-10 weeks based on last menstrual cycle. Has not been able to establish with her OBGYN for this . Denies any other complaints at this time and is overall well-appearing ambulatory with no neurological deficits. Hemodynamically stable with an unremarkable neurological assessment. Patient has a history of migraines and frequently gets them drop the . States she usually gets an IV with hydration and combination medications which help her. IV was established she was given fluids, Compazine, diphenhydramine and magnesium. Basic laboratory studies and beta hCG level obtained. Patient will be re-evaluated after interventions. No leukocytosis or anemia. Normal platelet count. Electrolytes are unremarkable. Creatinine normal. Glucose normal. LFTs normal. Vital signs remained stable and hemodynamically unremarkable. Patient re-evaluated and had significant improvement in headache from 03/05 down to 09/02. Safe for discharge home at this time with PCP follow-up and OBGYN follow-up. Medical Records Attestation: I reviewed the patient's medical records. Lab Data Attestation: I reviewed the patient's lab results. 04/15/25 03:42 04/15/25 03:42 Labs: Lab Results 04/15/25 Range/Units 03:42 WBC 9.7 (4.5-10.0) K/mm3 RBC 4.10 L (4.2-5.4) M/mm3 Hgb 12.4 D (12.0-15.0) g/dL Hct 36.7 L (37.0-47.0) % MCV 89.5 (80-100) fl MCH 30.2 (26-34) pg MCHC 33.8 (32-36) g/dl RDW 12.7 (11.5-14.5) % Plt Count 226 (150-375) k/mm3 MPV 9.6 (7.4-10.4) fl Immature Gran % (Auto) 0.2 (0-0.5) % Neut % (Auto) 78.0 H (45.5-73.1) % Lymph % (Auto) 17.0 L (18.3-44.2) % [place] % (Auto) 4.0 (2.6-8.5) % Eos % (Auto) 0.6 (0-4.4) % Baso % (Auto) 0.2 (0.2-1.2) % Lymph # (Auto) 1.65 (0.9-3.2) K/mm3 [place] # (Auto) 0.4 (0.1-0.6) K/mm3 Eos # (Auto) 0.1 (0-0.3) K/mm3 Baso # (Auto) 0.0 (0.0-0.1) K/mm3 Abs Immat Gran (auto) 0.02 (0.00-0.031) K/mm3 Absolute Neuts (auto) 7.6 H (1.3-6.7) K/mm3 Absolute Nucleated RBC 0.000 (0.0-0.012) K/mm3 Nucleated RBC % 0.0 (0.0-0.2) % Sodium 134 L (137-145) mmol/L Potassium 3.5 (3.4-5.0) mmol/L Chloride 104 (98-107) mmol/L Carbon Dioxide 24 (22-30) mmol/L Anion Gap 6 (4-12) mmol/L BUN 8 (7-17) mg/dL Creatinine 0.55 L (0.7-1.0) mg/dL Estim Creat Clear Calc 135 ml/min Estimated GFR > 60 (59 - ) Glucose 96 (65-110) mg/dL Calcium 9.1 (8.4-10.2) mg/dL Magnesium 1.7 (1.6-2.3) mg/dL Total Bilirubin 0.5 (0.2-1.3) mg/dL AST 27 (14-36) U/L ALT 24 (6-35) U/L Alkaline Phosphatase 62 (38-126) U/L Total Protein 7.0 (6.3-8.2) g/dL Albumin 4.3 (3.5-5.1) g/dL Beta HCG, Quant 45788.00 mIU/ML Discharge Plan Discharge Clinical Impression: Migraine, First trimester Patient Disposition: Home Condition: Stable Instructions: Antibiotic Form, Migraine Headache (ED) Additional Instructions: Follow-up with your OBGYN regarding your 1st trimester . Follow-up with your regular primary care provider regarding her migraine headaches for longer-term solutions. Return within recurrence or new/emergent concerns at any time. We will send you home with some Zofran as needed if you have any residual nausea. Patient Language: [place] Prescriptions: New ondansetron 4 mg tablet,disintegrating 4 mg PO Q8H PRN (Reason: nausea and vomiting) Qty: 10 0RF No Action docusate sodium [Colace] 100 mg capsule 100 mg PO BID Qty: 60 0RF ibuprofen 600 mg tablet 600 mg PO Q6H PRN (Reason: pain) Qty: 30 0RF ferrous sulfate 325 mg (65 mg iron) tablet 325 mg PO BID Qty: 60 3RF Follow-up/Referrals: Pam,MARY ANNE Guevara [Primary Care Provider, Unknown] Stand Alone Forms: Work/School Release IP Time of Disposition: 04:51
[2025-04-15 03:29] VITALS: BP 119/81; PULSE 104; RESP 23; TEMP 36.7; O2SAT 98
[2025-04-15] MEDS: PROCHLORPERAZINE EDISYLATE 10 MG/2 ML VIAL IV PUSH (03:45)
[2025-04-15] MEDS: SODIUM CHLORIDE 0.9% IV 1,000 ML 999 ML IV CONT (03:45)
[2025-04-15] MEDS: MAGNESIUM SULF 2 GM/WATER 50ML 2 GM/50 ML BAG IVPB (03:51)
[2025-04-15 04:00] LABS: Hematocrit 36.7 % (37.0-47.0); Hemoglobin 12.4 g/dL (12.0-15.0); Immature Granulocyte Percent A 0.2 % (0-0.5); Lymphocytes Absolute Auto 1.65 K/mm3 (0.9-3.2); Mean Corpuscular HGB Conc 33.8 g/dl (32-36); Mean Corpuscular Hemoglobin 30.2 pg (26-34); Mean Corpuscular Volume 89.5 fl (80-100); Nucleated Red Blood Cells Absolute Auto 0.000 K/mm3 (0.0-0.012); Nucleated Red Blood Cells Perc 0.0 % (0.0-0.2); Platelet Count Result 226 k/mm3 (150-375); Red Blood Count 4.10 M/mm3 (4.2-5.4); White Blood Count 9.7 K/mm3 (4.5-10.0)
[2025-04-15 04:02] VITALS: BP 105/63; PULSE 85; RESP 26; O2SAT 97
[2025-04-15 04:17] LABS: Alanine Aminotransferase 24 U/L (6-35); Albumin Level 4.3 g/dL (3.5-5.1); Alkaline Phosphatase 62 U/L (38-126); Anion Gap 6 mmol/L (4-12); Aspartate Amino Transferase 27 U/L (14-36); Bilirubin,Total 0.5 mg/dL (0.2-1.3); Blood Urea Nitrogen 8 mg/dL (7-17); Calcium 9.1 mg/dL (8.4-10.2); Carbon Dioxide 24 mmol/L (22-30); Chloride 104 mmol/L (98-107); Estimated CRCL calculation 135 ml/min; Estimated Glomerular Filt Rate > 60; Glucose 96 mg/dL (65-110); Magnesium 1.7 mg/dL (1.6-2.3); Potassium 3.5 mmol/L (3.4-5.0); Sodium 134 mmol/L (137-145); Total Protein 7.0 g/dL (6.3-8.2)
[2025-04-15 04:31] VITALS: BP 106/66; PULSE 82; RESP 21; O2SAT 100
[2025-04-15 05:19] VITALS: BP 107/61; PULSE 96; RESP 17; O2SAT 97
[2025-04-15 06:06] LABS: Beta HCG Quantitative 94933.00 mIU/ML
== END 2025-04-15 05:17 | disposition home or self-care (01) ==
PROVIDERS: Emergency Provider Student in an Organized Health Care Education/Training Program; PCP Physician Assistant
DX: O99.351 Diseases of the nervous system complicating pregnancy, first trimester (principal); G43.909 Migraine, unspecified, not intractable, without status migrainosus; Z3A.09 9 weeks gestation of pregnancy
CPT/HCPCS: 36415; 80053; 83735; 84702; 85025; 96365; 96375; 99284; J0780; J1200; J3475; J7030